=== PATIENT | female | born 1990 | race Caucasian/White ===

== ENCOUNTER 2019-02-01 08:45 | Emergency (ER) | payer BC, OTHER ==
--- NOTE | 2019-02-01 09:01 | ED ---
Bite Injury/Animal - HPI Summary HPI Summary: Pt. is a 28y.o female who presents to the ER for evaluation of a dog bite to right hand that occurred 4 days ago. Pt. states she was at a local [employer] salon and an individual brought their small dog in and it bit pt. in right hand. Police were notified and report was filed with the health department. Pt. states she has been waiting to hear back from health dep. regarding status of dog's vaccination. Pt. states her PCP told her to come to ER for eval. given unknown vaccine status of dog. Last tetanus >5 yrs per pt. NO past medical hx. Pt. c/o mild pain to right hand and arm. Sxs are mild in severity. Pt. notes she had rabies vaccine about 10 years ago for bat bite. NO current modifying factors. 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 Denies: Hx Diabetes, Hx Thyroid Disease Cardiovascular History: Denies: Hx Hypertension, Hx Pacemaker/ICD Respiratory History: Denies: Hx Asthma, Hx Chronic Obstructive Pulmonary Disease (COPD) GI History: Denies: Hx Ulcer History: Denies: Hx Dialysis, Hx Renal Disease Psychiatric History: Denies: Hx Panic Disorder - Surgical History Surgery Procedure, Year, and Place: Cholysytectomy 2009 Infectious Disease History: No Infectious Disease History: Denies: Hx Hepatitis, Hx Human Immunodeficiency Virus (HIV), Traveled Outside the [place] in Last 30 Days - Family History Known Family History: Positive: Non-Contributory - Social History Occupation: Employed Full-time Lives: With Family Alcohol Use: Occasionally Hx Substance Use: No Substance Use Type: Reports: None Hx Tobacco Use: No Smoking Status (MU): Never Smoked Tobacco Review of Systems Constitutional: Negative Negative: Fever, Chills Gastrointestinal: Negative Negative: Vomiting, Nausea Positive: Other - wound to right hand All Other Systems Reviewed And Are Negative: Yes Physical Exam Triage Information Reviewed: Yes Vital Signs On Initial Exam: Initial Vitals Temp Pulse Resp BP Pulse Ox 98.8 F 88 16 146/83 100 02/01/19 08:47 02/01/19 08:47 02/01/19 08:47 02/01/19 08:47 02/01/19 08:47 Vital Signs Reviewed: Yes Appearance: Positive: Well-Appearing - Pt. sitting on bed in NAD. Skin: Positive: Warm, Dry Head/Face: Positive: Normal Head/Face Inspection Eyes: Positive: Normal, EOMI Neck: Positive: Supple Musculoskeletal: Positive: Other - Small puncture wounds to right hand at base of thumb with localized erythema. NO surrounding cellulitis, induration or fluctuance. Full ROM of digits, wrist and elbow. NO draiange. Neurological: Positive: Normal, CN Intact II-III Psychiatric: Positive: Affect/Mood Appropriate Diagnostics - Vital Signs Vital Signs Temp Pulse Resp BP Pulse Ox 02/01/19 08:47 98.8 F 88 16 146/83 100 - Laboratory Lab Statement: Any lab studies that have been ordered have been reviewed, and results considered in the medical decision making process. Bite Injury Course/Dx - Course Course Of Treatment: Pt. presenting after being bit by a small dog at a nail salon 4 days ago. Dog is reportedly a family pet. Unknown vaccination status. Tetanus was updated. No signs of infection on exam. I spoke with Aditya from [facility] garding case. He states that rabies vaccination is not indicated. He states he will f.u with pt. ruthw. Augmentin rx. Pt. will f.u with PCP for wound check and health dept. To return if sxs change or worsen. pt. understands and agrees with plan. - Diagnoses Differential Diagnosis/HQI/PQRI: Positive: Cellulitis, Puncture, Rabies Exposure Provider Diagnosis: Dog bite Discharge - Sign-Out/Discharge Documenting (check all that apply): Patient Departure Patient Received Moderate/Deep Sedation with Procedure: No - Discharge Plan Condition: Good Disposition: HOME Prescriptions: Amoxicillin/Clavulanate TAB* [Augmentin TAB 875*] 875 mg PO BID #20 tab Patient Education Materials: Animal Bite (ED) [facility] [Outside] Jim Woods MD [Primary Care Provider] - Additional Instructions: [facility] will call you tomorrow for follow up I spoke with Aditya Mccain from the [facility] and rabies vaccination is not indicated Antibiotic as directed Keep wound clean and dry Tylenol or Motrin for pain as directed Return to ER if symptoms change or worsen - Billing Disposition and Condition Condition: GOOD Disposition: Home
[2019-02-01] MEDS ORDERED: Tetan/Diph/Pertus SYR(Tdap)* 0.5 ML SYR(BOOSTRIX) use SYR IM ONE (09:12)
[2019-02-01 12:00] VITALS: BP 144/91
== END 2019-02-01 12:00 | disposition home or self-care (01) ==
LOC: ED 08:45
DX: S61.451A Open bite of right hand, initial encounter (principal); W54.0XXA Bitten by dog, initial encounter; Y92.29 Other specified public building as the place of occurrence of the external cause; D68.51 Activated protein C resistance
CPT/HCPCS: 90471; 90715; 99282